=== PATIENT | male | born 1975 | race African-American/Black ===

== ENCOUNTER 2025-01-22 00:36 | Emergency (ER) | payer BC, SELFPAY ==
[2025-01-22 00:37] VITALS: BP 151/87; PULSE 70; RESP 16; TEMP 36.3; O2SAT 98; BMI 24.7
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
--- OUTSIDE RECORDS SUMMARY | 2025-01-22 01:24 | XMS_ITS | Clinical Summary ---
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 Name Role Phone None, Pcp Primary Care Provider Unavailabl e Allergies No known active allergies Medications No known medications Active Problems No known active problems Social History Tobacco Use Types Packs/Day Years Used Date Smoking Tobacco: Never Smokeless Tobacco: Never Tobacco Cessation:Counseling Given: Not Answered Alcohol Use Standard Drinks/Week Comments Never 0 (1 standard drink = 0.6 oz pur e alcohol) Sex and Gender Information Value Date Recorded Sex Assigned at Not on file Legal Sex Male 7:47 PM CDT Gender Identity Not on file Sexual Orientation Not on file Last Filed Vital Signs Vital Sign Reading Time Taken Comments Blood Pressure 155/96 04/24/2024 1:43 PM CDT Pulse 62 04/24/2024 1:43 PM CDT Temperature 36.7 C (98.1 F) 04/24/2024 1:43 PM CDT Respiratory Rate 16 04/24/2024 1:43 PM CDT Oxygen Saturation 99% 04/24/2024 1:43 PM CDT Inhaled Oxygen Concentration - - Weight 88 kg (194 lb 1.8 oz) 04/24/2024 1:43 PM CDT Height 182.9 cm (6') 04/24/2024 1:43 PM CDT Body Mass Index 26.33 04/24/2024 1:43 PM CDT Plan of Treatment Health Maintenance Due Date Last Done Comments CT Colonography 1976 Colonoscopy 1976 Colorectal Cancer Screening 1976 FIT-DNA 1976 Sigmoidoscopy 1976 iFOBT 1976 DTaP,Tdap,and Td Vaccines (2 - Td or Tdap) 01/02/2016 01/02/2006 COVID-19 Vaccine (2023-2 5 season) 2024 09/20/2021, 08/24/2021 Influenza Vaccine (#1) 2024 HPV Vaccines Aged Out No longer eligi ble based on patient's age to complete this topic Pneumococcal Vaccine: Pediatrics (0 to 5 Years) and At-Risk Patients (6 to 49 Years) Aged Out No longer eligible b ased on patient's age to complete this topic Insurance [facility] SERVICE Care Teams Latin American Studies Professor Relationship Specialty Start Date End Date None, Pcp [address] [facility] [place] [id number] PCP - General Tester Compressed Gases 07/08/23
[2025-01-22 01:27] LABS: Basophils Absolute Auto 0.03 K/uL (0.00-0.30); Basophils Percent Auto 0.6 % (0.0-3.0); Eosinophils Absolute Auto 0.06 K/uL (0.00-0.50); Eosinophils Percent Auto 1.3 % (0.0-7.0); Hematocrit 47.2 % (37.0-53.0); Hemoglobin* 15.8 gm/dL (13.5-17.5); Immature Granulocytes Abs Auto 0.01 K/uL (0.00-0.30); Immature Granulocytes Pct Auto 0.2 %; Lymphocytes Percent Auto 44.4 % (20-44); Mean Corpuscular HGB Conc 34 gm/dL (32-36); Mean Corpuscular Hemoglobin 29 pg (26-34); Mean Corpuscular Volume 87 fL (80-100); Monocytes Percent Auto 6.4 % (0.0-11.0); Neutrophils Percent Auto 47.1 % (42.0-72.0); Platelet Count* 174 K/uL (140-440); RDW Coefficient of Variation % 12.1 % (11.5-15.5); Red Blood Count 5.42 m/uL (4.30-5.90); Slide Review Reflex No; White Blood Count* 4.68 K/uL (4.50-11.00)
[2025-01-22 01:50] LABS: Chloride* 103 mmol/L (96-114)
[2025-01-22 01:51] LABS: Potassium* 4.4 mmol/L (3.6-5.1); Sodium* 140 mmol/L (135-149)
[2025-01-22 01:53] LABS: Creatinine* 0.8 mg/dL (0.5-1.5); Est. Creatinine Clearance* 123.94; Estimated Glomerular Filt Rate 109 ml/min
[2025-01-22 01:54] LABS: Anion Gap 10 mEq/L (7-15); Blood Urea Nitrogen* 16 mg/dL (5-24); Carbon Dioxide* 27 mmol/L (20-32); Glucose* 119 mg/dL (60-115)
[2025-01-22 01:55] LABS: Calcium* 9.4 mg/dL (8.4-10.6)
[2025-01-22 01:59] LABS: C Reactive Protein* < 0.5 mg/dL (0.5-1.0)
[2025-01-22 02:06] LABS: Troponin I* < 0.01 ng/mL (0.01-0.04)
== END 2025-01-22 02:33 | disposition home or self-care (01) ==
PROVIDERS: Emergency Provider Family Medicine
DX: F41.0 Panic disorder [episodic paroxysmal anxiety] (principal); F43.9 Reaction to severe stress, unspecified
CPT/HCPCS: 36415; 80048; 84484; 85025; 86140; 99283; 99284